=== PATIENT | female | born 1970 | race Caucasian/White ===

== ENCOUNTER 2020-08-22 14:04 | Emergency (ER) | payer OTHER ==
[~2020-08-22] VITALS: Ht 165.1 cm; Wt 117.9 kg
[2020-08-22] MEDS ORDERED: SYNTHROID125 MCG PO (14:23)
== END 2020-08-22 20:09 | disposition home or self-care (01) ==
LOC: ER 14:04
DX: E03.8 Other specified hypothyroidism (principal); R07.89 Other chest pain

== ENCOUNTER 2021-03-21 08:00 | Outpatient (CLI) | payer OTHER ==
[~2021-03-21 08:00] MED LIST: SYNTHROID125 MCG PO
== END 2021-03-21 08:30 | disposition home or self-care (01) ==
LOC: PPH VACUNA 08:00
PROVIDERS: ATTEND Emergency Medicine Pediatric Emergency Medicine
DX: Z23 Encounter for immunization (principal)

== ENCOUNTER 2024-01-06 10:47 | Outpatient (CLI) | payer OTHER | END 2024-01-06 10:52 | disposition home or self-care (01) | LOC: SONOGRAMA 10:47 | PROVIDERS: ATTEND Pathology Anatomic Pathology & Clinical Pathology | DX: D34 Benign neoplasm of thyroid gland (principal); E06.3 Autoimmune thyroiditis; E04.2 Nontoxic multinodular goiter ==